=== PATIENT | female | born 1995 | race Caucasian/White ===

== ENCOUNTER 2016-10-22 15:38 | Emergency (ER) | payer OTHER ==
[2016-10-22 17:54] VITALS: BP 125/82
--- NOTE | 2016-10-22 21:35 | UC ---
Throat Pain/Nasal Elder HPI - HPI Summary HPI Summary: PATIENT PRESENTS WITH NASAL CONGESTION, DRAINAGE, SINUS PRESSURE AND PAIN X 2 WEEKS. SHE WAS ALSO PRESCRIBED A STEROID DURING THE SECOND DOSE. SHE HAS BEEN ON TWO COURSES OF AMOXICILLIN WITHOUT IMPROVEMENT. SHE STATES SHE HAS INTERMITTENT PHILIP'S WITH THE SINUS PRESSURE. SHE HAS NEVER HAD A SINUS INFECTION IN THE PAST. SHE DENIES PREVIOUS PNA OR BRONCHITIS. SHE IS OTHERWISE HEALTHY. PRESSURE IS IMPROVED WITH SITTING AND WORSE IN RECUMBENT POSITION. ENDORSES POST-NASAL DRIP, CONGESTION, COUGH WITH PRODUCTION. DENIES CHEST PAIN, PRESSURE OR SOB. LUNGS ARE CLEAR TO AUSCULTATION. - History of Current Complaint Chief Complaint: UCRespiratory Stated Complaint: COUGH,CONGESTION Time Seen by Provider: 10/22/16 17:49 Hx Obtained From: Patient Hx Last Menstrual Period: one month ago ?: No Onset/Duration: Sudden Onset Severity: Moderate Pain Intensity: 0 Pain Scale Used: 0-10 Numeric Cough: Productive Associated Signs & Symptoms: Positive: Sinus Discomfort, Nasal Discharge - Epiglottits Risk Factors Epiglottis Risk Factors: Negative - Allergies/Home Medications Allergies/Adverse Reactions: Allergies Allergy/AdvReac Type Severity Reaction Status Date / Time No Known Allergies Allergy Unverified 10/22/16 17:54 Home Medications: Home Medications Benzonatate CAP* [Tessalon 100 MG CAP*] 10/22/16 [History] Fluticasone NASAL SPRAY 50MCG* [Flonase NASAL SPRAY 50MCG*] 10/22/16 [History Confirmed 10/22/16] PMH/Surg Hx/FS Hx/Imm Hx Previously Healthy: Yes - Surgical History Surgical History: None - Family History Known Family History: Positive: Unknown - Social History Occupation: Unemployed, Student Lives: Alone Alcohol Use: Occasionally Substance Use Type: None Smoking Status (MU): Never Smoked Tobacco Review of Systems Constitutional: Negative Skin: Negative Eyes: Negative ENT: Sore Throat, Nasal Discharge Respiratory: Cough Cardiovascular: Negative Gastrointestinal: Negative Neurovascular: Negative Musculoskeletal: Negative Neurological: Headache Psychological: Negative All Other Systems Reviewed And Are Negative: Yes Physical Exam Triage Information Reviewed: Yes Appearance: Well-Appearing, No Pain Distress, Well-Nourished Vital Signs: Initial Vital Signs Temp 98.1 F 10/22/16 17:50 Pulse 91 10/22/16 17:50 Resp 12 10/22/16 17:50 BP 125/82 05/15/17 17:50 Pulse Ox 99 10/22/16 17:50 Vital Signs Reviewed: Yes Eye Exam: Normal Eyes: Positive: Conjunctiva Clear ENT: Positive: Pharynx normal, Nasal congestion, Nasal drainage Dental Exam: Normal Neck exam: Normal Neck: Positive: Supple, Nontender, No Lymphadenopathy Respiratory Exam: Normal Respiratory: Positive: Chest non-tender, Lungs clear, Normal breath sounds, No respiratory distress, No accessory muscle use Cardiovascular Exam: Normal Cardiovascular: Positive: RRR, Pulses Normal Musculoskeletal Exam: Normal Musculoskeletal: Positive: Strength Intact, ROM Intact Neurological Exam: Normal Neurological: Positive: Alert, Muscle Tone Normal Psychological Exam: Normal Psychological: Positive: Normal Response To Family, Age Appropriate Behavior Skin Exam: Normal Throat Pain/Nasal Course/Dx - Course Course Of Treatment: PATIENT EDUCATED REGARDING ANTIBIOTIC USE AND OVERUSE. THIS IS LIKELY VIRAL, BUT SHE STATES SHE DID NOT FINISH A FULL COURSE, AND THEN WAS PRESCRIBED THE SAME MEDICATION DURING THE SECOND ROUND, WHICH WOULD HAVE NOT COVERED THE PATHOGENS THE SECOND TIME IF THEY DIDN'T COVER THEM THE FIRST TIME. PROVIDER AGREES TO PRESCRIBE DOXYCYLCINE FOR SINUSITIS, BUT ENCOURAGED TO FOLLOW UP WITH ENT OR PCP. SHE AGREES. PRESCRIBED ROBITUSSIN WITH CODEINE FOR COUGH AT NIGHT. - Differential Dx/Diagnosis Differential Diagnosis/HQI/PQRI: Influenza, Pharyngitis, Sinusitis, URI Provider Diagnoses: SINUSITIS Discharge - Discharge Plan Condition: Stable Disposition: HOME Prescriptions: DOXYcycline CAP(*) [DOXYcycline 100MG CAP(*)] 100 mg PO BID #14 cap guaiFENesin/CODIEN 100MG-10MG* [Robitussin AC 100Mg-10Mg*] 10 ml PO Q4H PRN # 100 udc MDD 10 PRN Reason: Cough Patient Education Materials: Sinusitis (ED), Upper Respiratory Infection (ED) Referrals: Keila Christensen MD [Medical Doctor] - Additional Instructions: Use the antibiotics as prescribed continue with nasal sprays continue with claritin take the robitussin with codeine as prescribed robitussin over the counter for day time use
== END 2016-10-22 18:59 | disposition home or self-care (01) ==
LOC: UCEAST 15:38
DX: J32.9 Chronic sinusitis, unspecified (principal)
CPT/HCPCS: 99212; G0463